=== PATIENT | male | born 1930 | race African-American/Black ===

== ENCOUNTER 2017-02-27 05:29 | Inpatient (IN) | payer MEDICARE, OTHER ==
[2017-02-27] MEDS: ALBUTEROL 0.083% (NEB) 2.5 MG/3 ML AMP HHN (07:10)
[2017-02-27 07:24] LABS: ADD MAN DIFF? NO
[2017-02-27 07:29] LABS: WHITE BLOOD COUNT 7.7 10^3/ul (4.8-10.8)
[2017-02-27 07:29] LABS: BASOPHIL # 0.1 10^3/ul (0.0-0.1); BASOPHILS % 1.2 % (0.0-2.0); EOSINOPHILS # 0.2 10^3/ul (0.0-0.5); EOSINOPHILS % 2.7 % (0.0-7.0); HEMATOCRIT 43.4 % (42.0-52.0); HEMOGLOBIN 14.7 g/dl (14.0-18.0); LYMPHOCYTES % 39.1 % (15.0-51.0); MEAN CORPUSCULAR HEMOGLOBIN 26.3 pg (29.0-33.0); MEAN CORPUSCULAR HGB CONC 33.9 g/dl (32.0-37.0); MEAN CORPUSCULAR VOLUME 77.8 fl (82.0-101.0); MEAN PLATELET VOLUME 8.7 fl (7.4-10.4); MONOCYTE # 0.6 10^3/ul (0.3-0.9); MONOCYTES % 8.4 % (0.0-11.0); NEUTROPHIL # 3.7 10^3/ul (1.6-7.5); NEUTROPHILS % 48.1 % (39.0-77.0); PLATELET COUNT 162 10^3/UL (140-415); RED BLOOD COUNT 5.58 10^6/ul (4.70-6.10); RED CELL DISTRIBUTION WIDTH 15.5 % (11.5-14.5)
[2017-02-27 07:54] LABS: ALANINE AMINOTRANSFERASE 52 IU/L (13-69); ALBUMIN 3.2 g/dl (3.3-4.9); ALBUMIN/GLOBULIN RATIO 0.91; ALKALINE PHOSPHATASE 76 IU/L (42-121); ANION GAP 11 (8-16); ASPARTATE AMINO TRANSFERASE 57 IU/L (15-46); BILIRUBIN,INDIRECT 0.1 mg/dl (0-1.1); BILIRUBIN,TOTAL 0.1 mg/dl (0.2-1.3); BLOOD UREA NITROGEN 17 mg/dl (7-20); CALCIUM 8.3 mg/dl (8.4-10.2); CARBON DIOXIDE 28 mmol/L (21-31); CHLORIDE 98 mmol/L (97-110); CREATININE 1.18 mg/dl (0.61-1.24); GLUCOSE 72 mg/dl (70-220); LIPASE 105 U/L (23-300); SODIUM 133 mmol/L (135-144); TOTAL PROTEIN 6.7 g/dl (6.1-8.1)
[2017-02-27 08:05] LABS: B-TYPE NATRIURETIC PEPTIDE 539 PG/ML (0-450); TROPONIN-I 0.016 ng/ml (0.00-0.12)
[2017-02-27] MEDS: FUROSEMIDE 40 MG INJ IV (09:21)
[2017-02-27] MEDS ORDERED: ALBUTEROL 0.083% (NEB) 2.5 MG/3 ML AMP HHN (12:30)
[2017-02-27 14:33] LABS: CREATINE KINASE 138 IU/L (23-200)
[2017-02-27 14:47] LABS: CK INDEX 0.7
[2017-02-27 14:56] LABS: CK-MB 0.98 ng/ml (0.0-2.4); TROPONIN-I < 0.012 ng/ml (0.00-0.12)
[2017-02-27] MEDS: HYDROCORTISONE 5 MG TAB PO ×2 (16:12→21:28)
[2017-02-27 19:38] LABS: CREATINE KINASE 125 IU/L (23-200)
[2017-02-27 19:51] LABS: CK INDEX 0.7; TROPONIN-I 0.012 ng/ml (0.00-0.12)
[2017-02-27 20:01] LABS: CK-MB 0.85 ng/ml (0.0-2.4)
[2017-02-27] MEDS: FUROSEMIDE 20 MG INJ IV (20:09)
[2017-02-27] MEDS: PHENYTOIN 100 MG CAP PO (21:28)
[2017-02-27] MEDS: FAMOTIDINE 20 MG TAB PO (21:28)
[2017-02-27] MEDS: CALCIUM CARBONATE 1.25 GM TAB PO (21:28)
[2017-02-27 22:44] LABS: ADD UMIC YES; UR ASCORBIC ACID NEGATIVE (NEGATIVE); UR BACTERIA FEW /HPF (NONE SEEN); UR BILIRUBIN (Dip) NEGATIVE (NEGATIVE); UR BLOOD (Dip) NEGATIVE (NEGATIVE); UR CLARITY SLIGHTLY CLOUDY (CLEAR); UR COLOR YELLOW (YELLOW); UR GLUCOSE (Dip) NEGATIVE (NEGATIVE); UR KETONES (Dip) NEGATIVE (NEGATIVE); UR LEUKOCYTE ESTERASE (Dip) 1+ Leu/ul (NEGATIVE); UR MUCUS FEW /HPF (NONE SEEN); UR NITRITE (Dip) POSITIVE (NEGATIVE); UR RBC 1 /HPF (0-5); UR SPECIFIC GRAVITY (Dip) 1.016 (1.003-1.030); UR SQUAMOUS EPITHELIAL CELL FEW /HPF (FEW); UR TOTAL PROTEIN (Dip) NEGATIVE (NEGATIVE); UR UROBILINOGEN (Dip) NEGATIVE (NEGATIVE); UR WBC 17 /HPF (0-5)
[2017-02-28] MEDS: CIPROFLOXACIN 400MG/D5W 200 ML IVPB (06:30)
[2017-02-28] MEDS: FUROSEMIDE 20 MG INJ IV (06:31)
[2017-02-28] MEDS: ENOXAPARIN 40 MG/0.4 ML SYG SC (09:00)
[2017-02-28 09:05] LABS: ADD MAN DIFF? NO
[2017-02-28 09:12] LABS: WHITE BLOOD COUNT 6.3 10^3/ul (4.8-10.8)
[2017-02-28 09:12] LABS: BASOPHIL # 0.1 10^3/ul (0.0-0.1); BASOPHILS % 1.1 % (0.0-2.0); EOSINOPHILS # 0.2 10^3/ul (0.0-0.5); EOSINOPHILS % 2.8 % (0.0-7.0); HEMATOCRIT 49.3 % (42.0-52.0); HEMOGLOBIN 16.5 g/dl (14.0-18.0); LYMPHOCYTES # 2.2 10^3/ul (0.8-2.9); LYMPHOCYTES % 34.3 % (15.0-51.0); MEAN CORPUSCULAR HEMOGLOBIN 26.6 pg (29.0-33.0); MEAN CORPUSCULAR HGB CONC 33.5 g/dl (32.0-37.0); MEAN CORPUSCULAR VOLUME 79.5 fl (82.0-101.0); MEAN PLATELET VOLUME 9.9 fl (7.4-10.4); MONOCYTE # 0.5 10^3/ul (0.3-0.9); MONOCYTES % 8.4 % (0.0-11.0); NEUTROPHIL # 3.3 10^3/ul (1.6-7.5); NEUTROPHILS % 52.8 % (39.0-77.0); PLATELET COUNT 154 10^3/UL (140-415); RED CELL DISTRIBUTION WIDTH 16.5 % (11.5-14.5)
[2017-02-28 09:35] LABS: ANION GAP 15 (8-16); BLOOD UREA NITROGEN 23 mg/dl (7-20); CALCIUM 8.6 mg/dl (8.4-10.2); CARBON DIOXIDE 29 mmol/L (21-31); CHLORIDE 97 mmol/L (97-110); CHOL/HDL RATIO 3.9 RATIO; CHOLESTEROL 226 mg/dl (100-200); CREATININE 1.49 mg/dl (0.61-1.24); GLUCOSE 82 mg/dl (70-220); HDL CHOLESTEROL 57 mg/dl (31-75); LDL CHOLESTEROL,CALCULATED 152 mg/dl; MAGNESIUM 2.1 mg/dl (1.7-2.5); POTASSIUM 4.1 mmol/L (3.5-5.1); SODIUM 137 mmol/L (135-144); TRIGLYCERIDES 87 mg/dl (0-149)
[2017-02-28 09:40] LABS: HEMOGLOBIN A1C 5.8 % (0-5.9)
[2017-02-28 10:08] LABS: FREE THYROXINE INDEX (Calc) 1.84 ug/ml (0.65-3.89); T3 UPTAKE 38.4 % (23.5-40.5); T4 (THYROXINE) 4.8 ug/dl (5.5-11.0)
[2017-02-28 10:22] LABS: THYROID STIMULATING HORMONE 0.066 MIU/L (0.465-4.680)
[2017-02-28] MEDS: LEVOTHYROXINE 150 MCG TAB PO (10:27)
[2017-02-28] MEDS: PHENYTOIN 100 MG CAP PO ×2 (10:28→20:50)
[2017-02-28] MEDS: CALCIUM CARBONATE 1.25 GM TAB PO ×2 (10:28→20:50)
[2017-02-28] MEDS: FAMOTIDINE 20 MG TAB PO ×2 (10:28→20:50)
[2017-02-28] MEDS: HYDROCORTISONE 5 MG TAB PO ×4 (11:18→20:50)
[2017-03-01] MEDS: HALOPERIDOL 5 MG INJ IM (06:01)
[2017-03-01] MEDS: LEVOTHYROXINE 125 MCG TAB PO (06:03)
[2017-03-01] MEDS ORDERED: LEVOTHYROXINE 150 MCG TAB PO (07:00)
[2017-03-01 08:15] LABS: ADD MAN DIFF? NO
[2017-03-01 08:18] LABS: BASOPHIL # 0.1 10^3/ul (0.0-0.1); BASOPHILS % 1.1 % (0.0-2.0); EOSINOPHILS # 0.2 10^3/ul (0.0-0.5); EOSINOPHILS % 3.3 % (0.0-7.0); HEMATOCRIT 46.2 % (42.0-52.0); HEMOGLOBIN 15.3 g/dl (14.0-18.0); LYMPHOCYTES # 1.9 10^3/ul (0.8-2.9); LYMPHOCYTES % 30.4 % (15.0-51.0); MEAN CORPUSCULAR HEMOGLOBIN 26.2 pg (29.0-33.0); MEAN CORPUSCULAR HGB CONC 33.1 g/dl (32.0-37.0); MEAN CORPUSCULAR VOLUME 79.2 fl (82.0-101.0); MEAN PLATELET VOLUME 8.9 fl (7.4-10.4); MONOCYTE # 0.6 10^3/ul (0.3-0.9); MONOCYTES % 9.3 % (0.0-11.0); NEUTROPHIL # 3.5 10^3/ul (1.6-7.5); NEUTROPHILS % 55.6 % (39.0-77.0); PLATELET COUNT 152 10^3/UL (140-415); RED BLOOD COUNT 5.83 10^6/ul (4.70-6.10); RED CELL DISTRIBUTION WIDTH 14.6 % (11.5-14.5)
[2017-03-01 08:18] LABS: WHITE BLOOD COUNT 6.3 10^3/ul (4.8-10.8)
[2017-03-01 08:45] LABS: ANION GAP 12 (8-16); BLOOD UREA NITROGEN 18 mg/dl (7-20); CARBON DIOXIDE 30 mmol/L (21-31); CHLORIDE 95 mmol/L (97-110); CREATININE 1.07 mg/dl (0.61-1.24); GLUCOSE 84 mg/dl (70-220); POTASSIUM 3.5 mmol/L (3.5-5.1); SODIUM 133 mmol/L (135-144)
[2017-03-01 08:46] LABS: PHENYTOIN (DILANTIN) 34.3 ug/ml (10.0-20.0)
[2017-03-01] MEDS: CALCIUM CARBONATE 1.25 GM TAB PO ×2 (09:00→21:10)
[2017-03-01] MEDS: HYDROCORTISONE 5 MG TAB PO ×3 (09:00→21:09)
[2017-03-01] MEDS: PHENYTOIN 100 MG CAP PO (09:00)
[2017-03-01] MEDS: FAMOTIDINE 20 MG TAB PO ×2 (09:00→21:10)
[2017-03-01] MEDS: CEFTRIAXONE 1 GM/50 ML (PMX) 50 ML IVPB ×2 (14:00→15:12)
[2017-03-01] MEDS: CALCITRIOL 0.25 MCG CAP PO ×2 (15:12→21:10)
[2017-03-01] MEDS: ASPIRIN (EC) 81 MG TAB PO (15:13)
[2017-03-01] MEDS: LIDOCAINE 1% (MPF) 5 ML VIAL SC (15:45)
[2017-03-01] MEDS: TAMSULOSIN (SR) 0.4 MG CAP PO (21:10)
[2017-03-02] MEDS: CIPROFLOXACIN 500 MG TAB PO ×3 (00:33→17:09)
[2017-03-02] MEDS: LEVOTHYROXINE 125 MCG TAB PO (05:44)
[2017-03-02 06:07] LABS: ADD MAN DIFF? NO
[2017-03-02 06:37] LABS: BASOPHIL # 0.1 10^3/ul (0.0-0.1); EOSINOPHILS # 0.2 10^3/ul (0.0-0.5); EOSINOPHILS % 3.3 % (0.0-7.0); HEMATOCRIT 48.2 % (42.0-52.0); HEMOGLOBIN 15.9 g/dl (14.0-18.0); LYMPHOCYTES # 2.3 10^3/ul (0.8-2.9); LYMPHOCYTES % 33.3 % (15.0-51.0); MEAN CORPUSCULAR HEMOGLOBIN 26.2 pg (29.0-33.0); MEAN CORPUSCULAR VOLUME 79.3 fl (82.0-101.0); MEAN PLATELET VOLUME 9.3 fl (7.4-10.4); MONOCYTE # 0.7 10^3/ul (0.3-0.9); MONOCYTES % 10.3 % (0.0-11.0); NEUTROPHIL # 3.6 10^3/ul (1.6-7.5); NEUTROPHILS % 51.7 % (39.0-77.0); PLATELET COUNT 151 10^3/UL (140-415); RED BLOOD COUNT 6.08 10^6/ul (4.70-6.10); RED CELL DISTRIBUTION WIDTH 14.7 % (11.5-14.5)
[2017-03-02 06:37] LABS: WHITE BLOOD COUNT 6.9 10^3/ul (4.8-10.8)
[2017-03-02 07:25] LABS: ANION GAP 11 (8-16); BLOOD UREA NITROGEN 16 mg/dl (7-20); CALCIUM 8.3 mg/dl (8.4-10.2); CARBON DIOXIDE 31 mmol/L (21-31); CHLORIDE 94 mmol/L (97-110); CREATININE 1.13 mg/dl (0.61-1.24); GLUCOSE 67 mg/dl (70-220); POTASSIUM 4.3 mmol/L (3.5-5.1); SODIUM 132 mmol/L (135-144)
[2017-03-02] MEDS ORDERED: ASPIRIN (EC) 81 MG TAB PO (09:00)
[2017-03-02] MEDS: HYDROCORTISONE 5 MG TAB PO (09:00)
[2017-03-02] MEDS: CALCITRIOL 0.25 MCG CAP PO ×3 (09:00→21:37)
[2017-03-02] MEDS: FAMOTIDINE 20 MG TAB PO ×2 (09:41→21:31)
[2017-03-02] MEDS: CALCIUM CARBONATE 1.25 GM TAB PO ×2 (09:41→21:31)
[2017-03-02] MEDS: ASPIRIN (EC) 81 MG TAB PO (09:41)
[2017-03-02] MEDS: COLLAGENASE 30 GM TUBE TOP (09:41)
[2017-03-02] MEDS: ENOXAPARIN 40 MG/0.4 ML SYG SC (09:55)
[2017-03-02] MEDS: HYDROCORTISONE 20 MG TAB PO ×3 (13:00→21:31)
[2017-03-02] MEDS: CEFTRIAXONE 1 GM/50 ML (PMX) 50 ML IVPB (13:38)
[2017-03-02 13:48] LABS: ADD UMIC YES; UR ASCORBIC ACID 20 mg/dL (NEGATIVE); UR BILIRUBIN (Dip) NEGATIVE (NEGATIVE); UR BLOOD (Dip) NEGATIVE (NEGATIVE); UR CLARITY CLEAR (CLEAR); UR COLOR YELLOW (YELLOW); UR GLUCOSE (Dip) NEGATIVE (NEGATIVE); UR KETONES (Dip) NEGATIVE (NEGATIVE); UR LEUKOCYTE ESTERASE (Dip) 1+ Leu/ul (NEGATIVE); UR NITRITE (Dip) NEGATIVE (NEGATIVE); UR RBC 2 /HPF (0-5); UR TOTAL PROTEIN (Dip) NEGATIVE (NEGATIVE); UR UROBILINOGEN (Dip) NEGATIVE (NEGATIVE); UR WBC 32 /HPF (0-5)
[2017-03-02] MEDS: HYDROCORTISONE 100 MG INJ IV ×2 (15:30→21:31)
[2017-03-02] MEDS: TESTOSTERONE CYPIONATE 200 MG/ML INJ IM (17:10)
[2017-03-02 19:16] LABS: PHENYTOIN (DILANTIN) 25.8 ug/ml (10.0-20.0)
[2017-03-02] MEDS: TAMSULOSIN (SR) 0.4 MG CAP PO (21:31)
[2017-03-03] MEDS: HYDROCORTISONE 100 MG INJ IV ×2 (06:19→13:12)
[2017-03-03] MEDS: LEVOTHYROXINE 125 MCG TAB PO (06:19)
[2017-03-03 07:05] LABS: FREE T3 2.55 pg/ml (2.77-5.27)
[2017-03-03 07:18] LABS: FREE T4 (FREE THYROXINE) 0.83 ng/dl (0.85-1.93)
[2017-03-03] MEDS: CALCIUM CARBONATE 1.25 GM TAB PO ×2 (09:23→21:11)
[2017-03-03] MEDS: HYDROCORTISONE 20 MG TAB PO ×3 (09:24→21:12)
[2017-03-03] MEDS: ASPIRIN (EC) 81 MG TAB PO (09:24)
[2017-03-03] MEDS: FAMOTIDINE 20 MG TAB PO ×2 (09:24→21:11)
[2017-03-03] MEDS: CALCITRIOL 0.25 MCG CAP PO ×2 (09:24→21:12)
[2017-03-03] MEDS: ENOXAPARIN 40 MG/0.4 ML SYG SC (09:28)
[2017-03-03] MEDS: COLLAGENASE 30 GM TUBE TOP (09:44)
[2017-03-03] MEDS: CEFTRIAXONE 1 GM/50 ML (PMX) 50 ML IVPB (13:13)
[2017-03-03] MEDS: LIOTHYRONINE 5 MCG TAB PO (14:10)
[2017-03-03 19:31] LABS: PHENYTOIN (DILANTIN) 15.5 ug/ml (10.0-20.0)
[2017-03-03] MEDS: TAMSULOSIN (SR) 0.4 MG CAP PO (21:12)
[2017-03-03] MEDS: LORAZEPAM 2 MG INJ IV (21:13)
[2017-03-04] MEDS: LEVOTHYROXINE 150 MCG TAB PO (06:14)
[2017-03-04] MEDS: CALCITRIOL 0.25 MCG CAP PO ×2 (08:26→10:33)
[2017-03-04] MEDS: CALCIUM CARBONATE 1.25 GM TAB PO ×4 (08:27→20:35)
[2017-03-04] MEDS: FAMOTIDINE 20 MG TAB PO ×2 (08:27→10:32)
[2017-03-04] MEDS: ASPIRIN (EC) 81 MG TAB PO ×3 (08:27→12:57)
[2017-03-04] MEDS: LIOTHYRONINE 5 MCG TAB PO ×3 (08:33→12:55)
[2017-03-04] MEDS: HYDROCORTISONE 20 MG TAB PO ×5 (08:33→20:35)
[2017-03-04] MEDS: ENOXAPARIN 40 MG/0.4 ML SYG SC (08:38)
[2017-03-04] MEDS: COLLAGENASE 30 GM TUBE TOP (08:47)
[2017-03-04] MEDS: CEFTRIAXONE 1 GM/50 ML (PMX) 50 ML IVPB (15:13)
[2017-03-04] MEDS: TAMSULOSIN (SR) 0.4 MG CAP PO (20:35)
[2017-03-04 21:48] LABS: PHENYTOIN (DILANTIN) 23.5 ug/ml (10.0-20.0)
[2017-03-05] MEDS: LEVOTHYROXINE 150 MCG TAB PO (06:56)
[2017-03-05 07:28] LABS: ADD MAN DIFF? NO
[2017-03-05 07:31] LABS: WHITE BLOOD COUNT 8.7 10^3/ul (4.8-10.8)
[2017-03-05 07:31] LABS: BASOPHIL # 0.1 10^3/ul (0.0-0.1); BASOPHILS % 1.1 % (0.0-2.0); EOSINOPHILS # 0.3 10^3/ul (0.0-0.5); EOSINOPHILS % 3.6 % (0.0-7.0); HEMOGLOBIN 15.1 g/dl (14.0-18.0); LYMPHOCYTES # 2.9 10^3/ul (0.8-2.9); LYMPHOCYTES % 32.8 % (15.0-51.0); MEAN CORPUSCULAR HEMOGLOBIN 26.9 pg (29.0-33.0); MEAN CORPUSCULAR HGB CONC 33.6 g/dl (32.0-37.0); MEAN CORPUSCULAR VOLUME 80.1 fl (82.0-101.0); MEAN PLATELET VOLUME 9.4 fl (7.4-10.4); MONOCYTE # 0.6 10^3/ul (0.3-0.9); MONOCYTES % 7.2 % (0.0-11.0); NEUTROPHIL # 4.8 10^3/ul (1.6-7.5); NEUTROPHILS % 54.8 % (39.0-77.0); PLATELET COUNT 184 10^3/UL (140-415); RED BLOOD COUNT 5.62 10^6/ul (4.70-6.10); RED CELL DISTRIBUTION WIDTH 15.9 % (11.5-14.5)
[2017-03-05 09:32] LABS: ALANINE AMINOTRANSFERASE 97 IU/L (13-69); ALBUMIN 3.5 g/dl (3.3-4.9); ALBUMIN/GLOBULIN RATIO 0.92; ALKALINE PHOSPHATASE 70 IU/L (42-121); ANION GAP 11 (8-16); ASPARTATE AMINO TRANSFERASE 75 IU/L (15-46); BILIRUBIN,INDIRECT 0.1 mg/dl (0-1.1); BILIRUBIN,TOTAL 0.1 mg/dl (0.2-1.3); BLOOD UREA NITROGEN 19 mg/dl (7-20); CALCIUM 8.7 mg/dl (8.4-10.2); CARBON DIOXIDE 33 mmol/L (21-31); CHLORIDE 99 mmol/L (97-110); CREATININE 1.22 mg/dl (0.61-1.24); GLUCOSE 105 mg/dl (70-220); POTASSIUM 4.1 mmol/L (3.5-5.1); SODIUM 139 mmol/L (135-144); TOTAL PROTEIN 7.3 g/dl (6.1-8.1)
[2017-03-05] MEDS: LIOTHYRONINE 5 MCG TAB PO (09:33)
[2017-03-05] MEDS: FAMOTIDINE 20 MG TAB PO ×2 (09:33→20:26)
[2017-03-05] MEDS: CALCITRIOL 0.25 MCG CAP PO ×2 (09:33→20:26)
[2017-03-05] MEDS: CALCIUM CARBONATE 1.25 GM TAB PO ×2 (09:33→20:26)
[2017-03-05] MEDS: ASPIRIN (EC) 81 MG TAB PO (09:33)
[2017-03-05] MEDS: HYDROCORTISONE 20 MG TAB PO ×2 (09:34→17:35)
[2017-03-05] MEDS: COLLAGENASE 30 GM TUBE TOP (09:34)
[2017-03-05] MEDS: ENOXAPARIN 40 MG/0.4 ML SYG SC (09:55)
[2017-03-05 11:43] LABS: MAGNESIUM 2.1 mg/dl (1.7-2.5)
[2017-03-05 11:43] LABS: PHOSPHORUS 3.5 mg/dl (2.5-4.9)
[2017-03-05 13:23] LABS: PHENYTOIN (DILANTIN) 34.3 ug/ml (10.0-20.0)
[2017-03-05] MEDS: CEFTRIAXONE 1 GM/50 ML (PMX) 50 ML IVPB (14:56)
[2017-03-05] MEDS: HYDROCORTISONE 5 MG TAB PO ×2 (18:00→20:26)
[2017-03-05] MEDS: TAMSULOSIN (SR) 0.4 MG CAP PO (20:26)
[2017-03-06] MEDS: ONDANSETRON 4 MG INJ IV (05:22)
[2017-03-06 06:53] LABS: ADD UMIC NO; UR ASCORBIC ACID NEGATIVE (NEGATIVE); UR BILIRUBIN (Dip) NEGATIVE (NEGATIVE); UR BLOOD (Dip) NEGATIVE (NEGATIVE); UR CLARITY SLIGHTLY CLOUDY (CLEAR); UR COLOR YELLOW (YELLOW); UR GLUCOSE (Dip) NEGATIVE (NEGATIVE); UR KETONES (Dip) NEGATIVE (NEGATIVE); UR LEUKOCYTE ESTERASE (Dip) NEGATIVE Leu/ul (NEGATIVE); UR NITRITE (Dip) NEGATIVE (NEGATIVE); UR RBC 1 /HPF (0-5); UR SPECIFIC GRAVITY (Dip) 1.021 (1.003-1.030); UR TOTAL PROTEIN (Dip) NEGATIVE (NEGATIVE); UR UROBILINOGEN (Dip) NEGATIVE (NEGATIVE); UR WBC 1 /HPF (0-5)
[2017-03-06] MEDS: LEVOTHYROXINE 150 MCG TAB PO (06:53)
[2017-03-06 08:19] LABS: CREATININE,URINE RANDOM 220.44 mg/dl (20-370)
[2017-03-06 08:19] LABS: SODIUM,URINE RANDOM 57 mmol/L (30-90)
[2017-03-06 08:39] LABS: OSMOLALITY,URINE 719 mOsm/kg (250-1200)
[2017-03-06 08:42] LABS: ADD MAN DIFF? NO
[2017-03-06 08:54] LABS: BASOPHILS % 0.3 % (0.0-2.0); EOSINOPHILS # 0.1 10^3/ul (0.0-0.5); EOSINOPHILS % 0.9 % (0.0-7.0); HEMATOCRIT 50.7 % (42.0-52.0); HEMOGLOBIN 16.6 g/dl (14.0-18.0); LYMPHOCYTES # 0.7 10^3/ul (0.8-2.9); LYMPHOCYTES % 10.9 % (15.0-51.0); MEAN CORPUSCULAR HEMOGLOBIN 26.4 pg (29.0-33.0); MEAN CORPUSCULAR HGB CONC 32.7 g/dl (32.0-37.0); MEAN CORPUSCULAR VOLUME 80.7 fl (82.0-101.0); MEAN PLATELET VOLUME 10.1 fl (7.4-10.4); MONOCYTE # 0.4 10^3/ul (0.3-0.9); MONOCYTES % 6.4 % (0.0-11.0); NEUTROPHIL # 5.3 10^3/ul (1.6-7.5); NEUTROPHILS % 80.6 % (39.0-77.0); RED BLOOD COUNT 6.28 10^6/ul (4.70-6.10); RED CELL DISTRIBUTION WIDTH 17.3 % (11.5-14.5)
[2017-03-06 08:54] LABS: WHITE BLOOD COUNT 6.6 10^3/ul (4.8-10.8)
[2017-03-06 09:05] LABS: PLATELET COUNT 134 10^3/UL (140-415)
[2017-03-06 09:12] LABS: ANION GAP 17 (8-16)
[2017-03-06 09:13] LABS: ALBUMIN 3.9 g/dl (3.3-4.9); BLOOD UREA NITROGEN 20 mg/dl (7-20); CALCIUM 8.2 mg/dl (8.4-10.2); CARBON DIOXIDE 24 mmol/L (21-31); CHLORIDE 100 mmol/L (97-110); CREATININE 1.24 mg/dl (0.61-1.24); GLUCOSE 88 mg/dl (70-220); MAGNESIUM 1.9 mg/dl (1.7-2.5); PHOSPHORUS 3.6 mg/dl (2.5-4.9); POTASSIUM 4.4 mmol/L (3.5-5.1); SODIUM 137 mmol/L (135-144)
[2017-03-06] MEDS: ACETAMINOPHEN 325 MG TAB PO ×2 (09:49→23:05)
[2017-03-06] MEDS: ASPIRIN (EC) 81 MG TAB PO (09:50)
[2017-03-06] MEDS: CALCIUM CARBONATE 1.25 GM TAB PO ×2 (09:50→21:35)
[2017-03-06] MEDS: FAMOTIDINE 20 MG TAB PO ×2 (09:50→21:35)
[2017-03-06] MEDS: CALCITRIOL 0.25 MCG CAP PO ×2 (09:50→21:35)
[2017-03-06] MEDS: COLLAGENASE 30 GM TUBE TOP (09:51)
[2017-03-06] MEDS: HYDROCORTISONE 5 MG TAB PO ×3 (09:51→21:35)
[2017-03-06] MEDS: LIOTHYRONINE 5 MCG TAB PO (09:51)
[2017-03-06] MEDS: ENOXAPARIN 40 MG/0.4 ML SYG SC (10:11)
[2017-03-06] MEDS ORDERED: PHENYTOIN 100 MG CAP PO (13:00)
[2017-03-06] MEDS: CEFTRIAXONE 1 GM/50 ML (PMX) 50 ML IVPB (13:25)
[2017-03-06] MEDS: PHENYTOIN 100 MG CAP PO ×2 (17:19→21:35)
[2017-03-06] MEDS: TAMSULOSIN (SR) 0.4 MG CAP PO (21:35)
[2017-03-07] MEDS ORDERED: VANCOMYCIN IV PER PHARMACY XX
[2017-03-07] MEDS: PIPER-TAZO 3.375 GM IV (PMX) 50 ML IVPB ×4 (00:25→21:47)
[2017-03-07] MEDS: SOD CHLORIDE 0.9% 500 ML IV (00:25)
[2017-03-07 01:21] LABS: ADD MAN DIFF? NO
[2017-03-07 01:31] LABS: BASOPHILS % 0.5 % (0.0-2.0); EOSINOPHILS # 0.1 10^3/ul (0.0-0.5); EOSINOPHILS % 1.2 % (0.0-7.0); HEMATOCRIT 48.9 % (42.0-52.0); HEMOGLOBIN 16.6 g/dl (14.0-18.0); LYMPHOCYTES # 1.5 10^3/ul (0.8-2.9); LYMPHOCYTES % 21.9 % (15.0-51.0); MEAN CORPUSCULAR HEMOGLOBIN 26.3 pg (29.0-33.0); MEAN CORPUSCULAR HGB CONC 33.9 g/dl (32.0-37.0); MEAN CORPUSCULAR VOLUME 77.6 fl (82.0-101.0); MEAN PLATELET VOLUME 9.5 fl (7.4-10.4); MONOCYTE # 0.5 10^3/ul (0.3-0.9); MONOCYTES % 6.9 % (0.0-11.0); NEUTROPHIL # 4.5 10^3/ul (1.6-7.5); NEUTROPHILS % 68.6 % (39.0-77.0); PLATELET COUNT 172 10^3/UL (140-415)
[2017-03-07 01:31] LABS: WHITE BLOOD COUNT 6.6 10^3/ul (4.8-10.8)
[2017-03-07 01:51] LABS: ALANINE AMINOTRANSFERASE 162 IU/L (13-69); ALBUMIN 3.5 g/dl (3.3-4.9); ALBUMIN/GLOBULIN RATIO 0.97; ALKALINE PHOSPHATASE 76 IU/L (42-121); ANION GAP 18 (8-16); ASPARTATE AMINO TRANSFERASE 157 IU/L (15-46); BILIRUBIN,INDIRECT 0.4 mg/dl (0-1.1); BILIRUBIN,TOTAL 0.4 mg/dl (0.2-1.3); BLOOD UREA NITROGEN 29 mg/dl (7-20); CALCIUM 8.2 mg/dl (8.4-10.2); CARBON DIOXIDE 21 mmol/L (21-31); CHLORIDE 94 mmol/L (97-110); CREATININE 3.07 mg/dl (0.61-1.24); GLUCOSE 121 mg/dl (70-220); POTASSIUM 4.8 mmol/L (3.5-5.1); SODIUM 128 mmol/L (135-144); TOTAL PROTEIN 7.1 g/dl (6.1-8.1)
[2017-03-07 01:57] LABS: LACTIC ACID 2.4 mmol/L (0.5-2.0)
[2017-03-07] MEDS: ACETAMINOPHEN 325 MG TAB PO (03:30)
[2017-03-07] MEDS: SOD CHLORIDE 0.9% 1,000 ML IV ×3 (03:37→21:55)
[2017-03-07 03:52] LABS: ADD UMIC YES; UR ASCORBIC ACID NEGATIVE (NEGATIVE); UR BACTERIA FEW /HPF (NONE SEEN); UR BILIRUBIN (Dip) NEGATIVE (NEGATIVE); UR BLOOD (Dip) NEGATIVE (NEGATIVE); UR CLARITY CLOUDY (CLEAR); UR COLOR AMBER (YELLOW); UR GLUCOSE (Dip) NEGATIVE (NEGATIVE); UR KETONES (Dip) TRACE mg/dL (NEGATIVE); UR LEUKOCYTE ESTERASE (Dip) NEGATIVE Leu/ul (NEGATIVE); UR MUCUS FEW /HPF (NONE SEEN); UR NITRITE (Dip) NEGATIVE (NEGATIVE); UR RBC 3 /HPF (0-5); UR TOTAL PROTEIN (Dip) NEGATIVE (NEGATIVE); UR UROBILINOGEN (Dip) 1+ mg/dL (NEGATIVE); UR WBC 5 /HPF (0-5)
[2017-03-07] MEDS: LEVOTHYROXINE 150 MCG TAB PO (06:00)
[2017-03-07] MEDS: LIDOCAINE 1% (MPF) 5 ML VIAL SC ×2 (06:30→08:00)
[2017-03-07] MEDS: ALBUMIN HUMAN 25% 100 ML IV ×3 (06:39→08:00)
[2017-03-07 07:51] LABS: ADD MAN DIFF? NO
[2017-03-07] MEDS ORDERED: ZOLPIDEM 5 MG TAB PO (08:00)
[2017-03-07 08:06] LABS: BASOPHILS % 0.6 % (0.0-2.0); EOSINOPHILS # 0.1 10^3/ul (0.0-0.5); EOSINOPHILS % 1.3 % (0.0-7.0); HEMATOCRIT 44.1 % (42.0-52.0); HEMOGLOBIN 15.1 g/dl (14.0-18.0); LYMPHOCYTES # 1.5 10^3/ul (0.8-2.9); LYMPHOCYTES % 23.4 % (15.0-51.0); MEAN CORPUSCULAR HEMOGLOBIN 26.6 pg (29.0-33.0); MEAN CORPUSCULAR HGB CONC 34.2 g/dl (32.0-37.0); MEAN CORPUSCULAR VOLUME 77.8 fl (82.0-101.0); MEAN PLATELET VOLUME 9.1 fl (7.4-10.4); MONOCYTE # 0.5 10^3/ul (0.3-0.9); MONOCYTES % 8.4 % (0.0-11.0); NEUTROPHIL # 4.1 10^3/ul (1.6-7.5); NEUTROPHILS % 65.8 % (39.0-77.0); PLATELET COUNT 151 10^3/UL (140-415); RED BLOOD COUNT 5.67 10^6/ul (4.70-6.10); RED CELL DISTRIBUTION WIDTH 15.7 % (11.5-14.5)
[2017-03-07 08:06] LABS: WHITE BLOOD COUNT 6.2 10^3/ul (4.8-10.8)
[2017-03-07 08:22] LABS: LACTIC ACID 1.8 mmol/L (0.5-2.0)
[2017-03-07] MEDS: HYDROCORTISONE 5 MG TAB PO ×3 (09:00→21:00)
[2017-03-07] MEDS: LIOTHYRONINE 5 MCG TAB PO (09:00)
[2017-03-07] MEDS: ENOXAPARIN 40 MG/0.4 ML SYG SC (09:34)
[2017-03-07 09:36] LABS: B-TYPE NATRIURETIC PEPTIDE 2110 PG/ML (0-450)
[2017-03-07] MEDS: ALBUTEROL 0.083% (NEB) 2.5 MG/3 ML AMP HHN ×4 (09:41→20:31)
[2017-03-07 09:54] LABS: ALBUMIN 3.5 g/dl (3.3-4.9); ANION GAP 17 (8-16); BLOOD UREA NITROGEN 32 mg/dl (7-20); CALCIUM 7.5 mg/dl (8.4-10.2); CARBON DIOXIDE 19 mmol/L (21-31); CHLORIDE 99 mmol/L (97-110); CREATININE 3.22 mg/dl (0.61-1.24); GLUCOSE 81 mg/dl (70-220); MAGNESIUM 1.7 mg/dl (1.7-2.5); PHOSPHORUS 3.7 mg/dl (2.5-4.9); POTASSIUM 3.6 mmol/L (3.5-5.1); SODIUM 131 mmol/L (135-144)
[2017-03-07] MEDS: VANCOMYCIN 2 GM in SOD CHLORIDE 0.9% 500 ML IVPB (10:33)
[2017-03-07 10:46] LABS: AADO2 Arterial 78.1 mmHg (7.0-24.0); Allen Test ACCEPTAB; Arterial Blood Gas Oxygen Sat 97.4 mmHG (95.0-100.0); Arterial COHb 0.1 % (0.0-3.0); Arterial Fraction of Oxyhgb 96.8 % (93.0-99.0); Arterial HCO3 21.9 mmol/L (22.0-26.0); Arterial MetHb 0.5 % (0.0-1.5); Arterial Total Hemglobin 14.7 g/dl (12.0-18.0); Arterial pCO2 35.2 mmhg (35-45); MODE NASAL CANNULA; Site Right Radial
[2017-03-07 14:07] LABS: CREATININE, RANDOM URINE 236 mg/dL (20-370); MICROALBUMIN 0.6 mg/dL; MICROALBUMIN/CREATININE RATIO 3 (<30)
[2017-03-07 15:01] LABS: ANION GAP 9 (8-16); BLOOD UREA NITROGEN 21 mg/dl (7-20); CARBON DIOXIDE 16 mmol/L (21-31); CHLORIDE 115 mmol/L (97-110); CREATININE 1.69 mg/dl (0.61-1.24); SODIUM 137 mmol/L (135-144)
[2017-03-07 15:17] LABS: POTASSIUM 2.6 mmol/L (3.5-5.1)
[2017-03-07 15:18] LABS: GLUCOSE 36 mg/dl (70-220)
[2017-03-07 15:20] LABS: CALCIUM 4.2 mg/dl (8.4-10.2)
[2017-03-07] MEDS: COLLAGENASE 30 GM TUBE TOP (16:00)
[2017-03-07] MEDS: CALCITRIOL 0.25 MCG CAP PO ×2 (16:13→21:54)
[2017-03-07] MEDS: PHENYTOIN 100 MG CAP PO ×2 (16:13→21:48)
[2017-03-07] MEDS: ASPIRIN (EC) 81 MG TAB PO (16:13)
[2017-03-07] MEDS: FAMOTIDINE 20 MG TAB PO ×2 (16:14→21:48)
[2017-03-07] MEDS: CALCIUM CARBONATE 1.25 GM TAB PO ×2 (16:14→21:48)
[2017-03-07 16:21] LABS: ADD UMIC YES; UR ASCORBIC ACID NEGATIVE (NEGATIVE); UR BACTERIA FEW /HPF (NONE SEEN); UR BILIRUBIN (Dip) NEGATIVE (NEGATIVE); UR BLOOD (Dip) 2+ mg/dL (NEGATIVE); UR CLARITY CLOUDY (CLEAR); UR COLOR YELLOW (YELLOW); UR GLUCOSE (Dip) NEGATIVE (NEGATIVE); UR KETONES (Dip) NEGATIVE (NEGATIVE); UR LEUKOCYTE ESTERASE (Dip) NEGATIVE Leu/ul (NEGATIVE); UR NITRITE (Dip) NEGATIVE (NEGATIVE); UR RBC 3 /HPF (0-5); UR SPECIFIC GRAVITY (Dip) 1.018 (1.003-1.030); UR TOTAL PROTEIN (Dip) 1+ mg/dl (NEGATIVE); UR UROBILINOGEN (Dip) NEGATIVE (NEGATIVE); UR WBC 6 /HPF (0-5)
[2017-03-07 17:03] LABS: CREATININE,URINE RANDOM 155.74 mg/dl (20-370)
[2017-03-07 17:21] LABS: SODIUM,URINE RANDOM 42 mmol/L (30-90)
[2017-03-07 17:33] LABS: ALANINE AMINOTRANSFERASE 121 IU/L (13-69); ALBUMIN 3.6 g/dl (3.3-4.9); ALBUMIN/GLOBULIN RATIO 1.28; ALKALINE PHOSPHATASE 59 IU/L (42-121); ANION GAP 13 (8-16); ASPARTATE AMINO TRANSFERASE 102 IU/L (15-46); BILIRUBIN,INDIRECT 0.3 mg/dl (0-1.1); BILIRUBIN,TOTAL 0.3 mg/dl (0.2-1.3); BLOOD UREA NITROGEN 27 mg/dl (7-20); CALCIUM 7.3 mg/dl (8.4-10.2); CARBON DIOXIDE 21 mmol/L (21-31); CHLORIDE 101 mmol/L (97-110); CREATININE 2.43 mg/dl (0.61-1.24); GLUCOSE 86 mg/dl (70-220); MAGNESIUM 1.7 mg/dl (1.7-2.5); PHOSPHORUS 3.5 mg/dl (2.5-4.9); POTASSIUM 3.1 mmol/L (3.5-5.1); SODIUM 132 mmol/L (135-144); TOTAL PROTEIN 6.4 g/dl (6.1-8.1)
[2017-03-07] MEDS: POTASSIUM CHLORIDE 50 ML IVPB (19:44)
[2017-03-07] MEDS: TAMSULOSIN (SR) 0.4 MG CAP PO (21:48)
[2017-03-08] MEDS ORDERED: VANCOMYCIN 1.5 GM in DEXTROSE 5% 500 ML IVPB (01:00)
[2017-03-08] MEDS: PIPER-TAZO 3.375 GM IV (PMX) 50 ML IVPB ×3 (05:18→20:51)
[2017-03-08] MEDS: LEVOTHYROXINE 150 MCG TAB PO (06:00)
[2017-03-08] MEDS: CALCITRIOL 0.25 MCG CAP PO ×2 (08:38→20:49)
[2017-03-08] MEDS: PHENYTOIN 100 MG CAP PO ×2 (08:38→20:49)
[2017-03-08] MEDS: LIOTHYRONINE 5 MCG TAB PO (08:38)
[2017-03-08] MEDS: FAMOTIDINE 20 MG TAB PO ×2 (08:38→20:50)
[2017-03-08] MEDS: HYDROCORTISONE 5 MG TAB PO ×3 (08:39→21:00)
[2017-03-08] MEDS: ASPIRIN (EC) 81 MG TAB PO (08:39)
[2017-03-08] MEDS: CALCIUM CARBONATE 1.25 GM TAB PO ×2 (08:39→20:49)
[2017-03-08] MEDS: ALBUTEROL 0.083% (NEB) 2.5 MG/3 ML AMP HHN ×4 (08:48→20:19)
[2017-03-08] MEDS: ENOXAPARIN 30 MG/0.3 ML SYG SC (08:49)
[2017-03-08] MEDS: COLLAGENASE 30 GM TUBE TOP (09:00)
[2017-03-08 11:13] LABS: ADD MAN DIFF? NO
[2017-03-08 11:18] LABS: WHITE BLOOD COUNT 7.1 10^3/ul (4.8-10.8)
[2017-03-08 11:18] LABS: BASOPHILS % 0.3 % (0.0-2.0); EOSINOPHILS # 0.4 10^3/ul (0.0-0.5); EOSINOPHILS % 5.2 % (0.0-7.0); LYMPHOCYTES # 1.8 10^3/ul (0.8-2.9); LYMPHOCYTES % 24.9 % (15.0-51.0); MEAN CORPUSCULAR HEMOGLOBIN 26.4 pg (29.0-33.0); MEAN CORPUSCULAR HGB CONC 33.3 g/dl (32.0-37.0); MEAN CORPUSCULAR VOLUME 79.3 fl (82.0-101.0); MEAN PLATELET VOLUME 9.1 fl (7.4-10.4); MONOCYTE # 0.7 10^3/ul (0.3-0.9); MONOCYTES % 10.3 % (0.0-11.0); NEUTROPHIL # 4.2 10^3/ul (1.6-7.5); NEUTROPHILS % 58.9 % (39.0-77.0); PLATELET COUNT 128 10^3/UL (140-415); POSITIVE DIFF @See below; RED BLOOD COUNT 4.92 10^6/ul (4.70-6.10); RED CELL DISTRIBUTION WIDTH 15.6 % (11.5-14.5)
[2017-03-08 11:37] LABS: ALANINE AMINOTRANSFERASE 96 IU/L (13-69); ALBUMIN 3.2 g/dl (3.3-4.9); ALBUMIN/GLOBULIN RATIO 1.14; ALKALINE PHOSPHATASE 56 IU/L (42-121); ANION GAP 12 (8-16); ASPARTATE AMINO TRANSFERASE 74 IU/L (15-46); BILIRUBIN,INDIRECT 0.2 mg/dl (0-1.1); BILIRUBIN,TOTAL 0.2 mg/dl (0.2-1.3); BLOOD UREA NITROGEN 19 mg/dl (7-20); CALCIUM 7.3 mg/dl (8.4-10.2); CARBON DIOXIDE 23 mmol/L (21-31); CHLORIDE 104 mmol/L (97-110); CREATININE 1.61 mg/dl (0.61-1.24); GLUCOSE 93 mg/dl (70-220); POTASSIUM 3.3 mmol/L (3.5-5.1); SODIUM 136 mmol/L (135-144)
[2017-03-08 11:39] LABS: PHOSPHORUS 2.2 mg/dl (2.5-4.9)
[2017-03-08 11:39] LABS: ANION GAP 14 (8-16); BLOOD UREA NITROGEN 19 mg/dl (7-20); CALCIUM 7.4 mg/dl (8.4-10.2); CARBON DIOXIDE 25 mmol/L (21-31); CHLORIDE 104 mmol/L (97-110); CREATININE 1.63 mg/dl (0.61-1.24); GLUCOSE 92 mg/dl (70-220); MAGNESIUM 1.8 mg/dl (1.7-2.5); PHOSPHORUS 2.2 mg/dl (2.5-4.9); POTASSIUM 3.3 mmol/L (3.5-5.1); SODIUM 140 mmol/L (135-144)
[2017-03-08] MEDS: SOD CHLORIDE 0.9% 1,000 ML IV (13:36)
[2017-03-08] MEDS: ALBUMIN HUMAN 25% 100 ML IV (16:39)
[2017-03-08] MEDS: TAMSULOSIN (SR) 0.4 MG CAP PO (20:49)
[2017-03-09] MEDS: SOD CHLORIDE 0.9% 1,000 ML IV ×2 (03:25→22:15)
[2017-03-09] MEDS: PIPER-TAZO 3.375 GM IV (PMX) 50 ML IVPB ×3 (05:17→21:37)
[2017-03-09] MEDS: LEVOTHYROXINE 150 MCG TAB PO (05:17)
[2017-03-09] MEDS: ALBUTEROL 0.083% (NEB) 2.5 MG/3 ML AMP HHN ×4 (08:18→21:00)
[2017-03-09 08:38] LABS: ALANINE AMINOTRANSFERASE 73 IU/L (13-69); ALBUMIN 3.1 g/dl (3.3-4.9); ALBUMIN/GLOBULIN RATIO 1.06; ALKALINE PHOSPHATASE 48 IU/L (42-121); ANION GAP 15 (8-16); ASPARTATE AMINO TRANSFERASE 54 IU/L (15-46); BILIRUBIN,INDIRECT 0.2 mg/dl (0-1.1); BILIRUBIN,TOTAL 0.2 mg/dl (0.2-1.3); BLOOD UREA NITROGEN 11 mg/dl (7-20); CALCIUM 7.6 mg/dl (8.4-10.2); CARBON DIOXIDE 25 mmol/L (21-31); CHLORIDE 106 mmol/L (97-110); CREATININE 1.26 mg/dl (0.61-1.24); GLUCOSE 99 mg/dl (70-220); POTASSIUM 3.6 mmol/L (3.5-5.1); SODIUM 142 mmol/L (135-144)
[2017-03-09 08:49] LABS: VANCOMYCIN,TROUGH < 5.0 ug/ml (10.0-20.0)
[2017-03-09] MEDS: ASPIRIN (EC) 81 MG TAB PO (08:55)
[2017-03-09] MEDS: CALCIUM CARBONATE 1.25 GM TAB PO ×3 (08:55→18:11)
[2017-03-09] MEDS: PHENYTOIN 100 MG CAP PO ×2 (08:55→21:36)
[2017-03-09] MEDS: CALCITRIOL 0.25 MCG CAP PO ×2 (08:55→21:36)
[2017-03-09] MEDS: HYDROCORTISONE 5 MG TAB PO ×3 (08:55→21:36)
[2017-03-09] MEDS: FAMOTIDINE 20 MG TAB PO ×2 (08:55→21:36)
[2017-03-09] MEDS: LIOTHYRONINE 5 MCG TAB PO (08:55)
[2017-03-09] MEDS: ENOXAPARIN 30 MG/0.3 ML SYG SC (09:06)
[2017-03-09] MEDS: VANCOMYCIN 1.5 GM in DEXTROSE 5% 500 ML IVPB (09:16)
[2017-03-09 12:48] LABS: HEPATITIS B SURFACE ANTIGEN NEGATIVE (NEGATIVE)
[2017-03-09] MEDS: ERGOCALCIFEROL 50,000 UNIT CAP PO (12:52)
[2017-03-09] MEDS: COLLAGENASE 30 GM TUBE TOP (12:52)
[2017-03-09 13:06] LABS: HEPATITIS C VIRAL ANTIBODY NEGATIVE (NEGATIVE)
[2017-03-09 14:05] LABS: IONIZED CALCIUM 1.1 mmol/L (1.1-1.4)
[2017-03-09] MEDS: TAMSULOSIN (SR) 0.4 MG CAP PO (21:36)
[2017-03-10] MEDS: PIPER-TAZO 3.375 GM IV (PMX) 50 ML IVPB ×3 (05:35→21:06)
[2017-03-10] MEDS: ALBUTEROL 0.083% (NEB) 2.5 MG/3 ML AMP HHN ×4 (08:13→21:13)
[2017-03-10 08:48] LABS: ALANINE AMINOTRANSFERASE 75 IU/L (13-69); ALBUMIN 2.9 g/dl (3.3-4.9); ALBUMIN/GLOBULIN RATIO 1.07; ALKALINE PHOSPHATASE 45 IU/L (42-121); ANION GAP 13 (8-16); ASPARTATE AMINO TRANSFERASE 69 IU/L (15-46); BILIRUBIN,INDIRECT 0.1 mg/dl (0-1.1); BILIRUBIN,TOTAL 0.1 mg/dl (0.2-1.3); BLOOD UREA NITROGEN 6 mg/dl (7-20); CALCIUM 7.3 mg/dl (8.4-10.2); CARBON DIOXIDE 24 mmol/L (21-31); CHLORIDE 108 mmol/L (97-110); GLUCOSE 68 mg/dl (70-220); POTASSIUM 3.5 mmol/L (3.5-5.1); SODIUM 141 mmol/L (135-144); TOTAL PROTEIN 5.6 g/dl (6.1-8.1)
[2017-03-10 08:56] LABS: FREE T3 1.84 pg/ml (2.77-5.27)
[2017-03-10] MEDS: LIOTHYRONINE 5 MCG TAB PO ×2 (10:18→21:03)
[2017-03-10] MEDS: CALCIUM CARBONATE 1.25 GM TAB PO ×3 (10:18→18:28)
[2017-03-10] MEDS: HYDROCORTISONE 5 MG TAB PO ×3 (10:18→21:04)
[2017-03-10] MEDS: LEVOTHYROXINE 150 MCG TAB PO (10:18)
[2017-03-10] MEDS: CALCITRIOL 0.25 MCG CAP PO ×2 (10:18→21:04)
[2017-03-10] MEDS: FAMOTIDINE 20 MG TAB PO ×2 (10:19→21:04)
[2017-03-10] MEDS: ASPIRIN (EC) 81 MG TAB PO (10:19)
[2017-03-10] MEDS: COLLAGENASE 30 GM TUBE TOP (10:19)
[2017-03-10] MEDS: PHENYTOIN 100 MG CAP PO ×2 (10:19→15:33)
[2017-03-10] MEDS: ENOXAPARIN 30 MG/0.3 ML SYG SC (10:21)
[2017-03-10] MEDS: LEVOTHYROXINE 25 MCG TAB PO (13:03)
[2017-03-10] MEDS: ERGOCALCIFEROL 50,000 UNIT CAP PO (13:03)
[2017-03-10] MEDS: VANCOMYCIN 1.5 GM in DEXTROSE 5% 500 ML IVPB (13:03)
[2017-03-10] MEDS: FINASTERIDE 5 MG TAB PO (15:33)
[2017-03-10] MEDS: TAMSULOSIN (SR) 0.4 MG CAP PO (21:04)
[2017-03-10] MEDS ORDERED: PHENYTOIN 50 MG CHEW PO (22:00)
[2017-03-11] MEDS: PIPER-TAZO 3.375 GM IV (PMX) 50 ML IVPB ×3 (05:42→21:49)
[2017-03-11] MEDS: CALCIUM CARBONATE 1.25 GM TAB PO ×3 (05:46→17:43)
[2017-03-11] MEDS: LEVOTHYROXINE 175 MCG TAB PO (05:46)
[2017-03-11 06:51] LABS: ADD MAN DIFF? NO
[2017-03-11 06:57] LABS: WHITE BLOOD COUNT 7.6 10^3/ul (4.8-10.8)
[2017-03-11 06:57] LABS: BASOPHIL # 0.1 10^3/ul (0.0-0.1); BASOPHILS % 1.1 % (0.0-2.0); EOSINOPHILS # 0.3 10^3/ul (0.0-0.5); EOSINOPHILS % 3.9 % (0.0-7.0); HEMATOCRIT 41.8 % (42.0-52.0); HEMOGLOBIN 13.9 g/dl (14.0-18.0); LYMPHOCYTES # 2.8 10^3/ul (0.8-2.9); LYMPHOCYTES % 36.8 % (15.0-51.0); MEAN CORPUSCULAR HEMOGLOBIN 26.2 pg (29.0-33.0); MEAN CORPUSCULAR HGB CONC 33.3 g/dl (32.0-37.0); MEAN CORPUSCULAR VOLUME 78.9 fl (82.0-101.0); MEAN PLATELET VOLUME 9.3 fl (7.4-10.4); MONOCYTE # 0.8 10^3/ul (0.3-0.9); MONOCYTES % 9.9 % (0.0-11.0); NEUTROPHIL # 3.5 10^3/ul (1.6-7.5); NEUTROPHILS % 46.3 % (39.0-77.0); PLATELET COUNT 182 10^3/UL (140-415)
[2017-03-11 07:47] LABS: ALANINE AMINOTRANSFERASE 142 IU/L (13-69); ALBUMIN 3.3 g/dl (3.3-4.9); ALBUMIN/GLOBULIN RATIO 1.06; ALKALINE PHOSPHATASE 53 IU/L (42-121); ANION GAP 15 (8-16); ASPARTATE AMINO TRANSFERASE 157 IU/L (15-46); BILIRUBIN,INDIRECT 0.1 mg/dl (0-1.1); BILIRUBIN,TOTAL 0.1 mg/dl (0.2-1.3); BLOOD UREA NITROGEN 5 mg/dl (7-20); CALCIUM 7.9 mg/dl (8.4-10.2); CARBON DIOXIDE 24 mmol/L (21-31); CHLORIDE 106 mmol/L (97-110); CREATININE 1.11 mg/dl (0.61-1.24); GLUCOSE 73 mg/dl (70-220); POTASSIUM 3.4 mmol/L (3.5-5.1); SODIUM 142 mmol/L (135-144); TOTAL PROTEIN 6.4 g/dl (6.1-8.1)
[2017-03-11 08:16] LABS: PHENYTOIN (DILANTIN) 20.1 ug/ml (10.0-20.0)
[2017-03-11 09:19] LABS: MAGNESIUM 1.9 mg/dl (1.7-2.5)
[2017-03-11 09:19] LABS: PHOSPHORUS 2.3 mg/dl (2.5-4.9)
[2017-03-11] MEDS: COLLAGENASE 30 GM TUBE TOP (09:27)
[2017-03-11] MEDS: CALCITRIOL 0.25 MCG CAP PO ×2 (09:35→21:45)
[2017-03-11] MEDS: LIOTHYRONINE 5 MCG TAB PO ×2 (09:35→21:44)
[2017-03-11] MEDS: HYDROCORTISONE 5 MG TAB PO ×3 (09:36→21:45)
[2017-03-11] MEDS: FINASTERIDE 5 MG TAB PO (09:36)
[2017-03-11] MEDS: POTASSIUM CHLORIDE (SR) 20 MEQ TAB PO (09:36)
[2017-03-11] MEDS: FAMOTIDINE 20 MG TAB PO ×2 (09:36→21:44)
[2017-03-11] MEDS: ASPIRIN (EC) 81 MG TAB PO (09:36)
[2017-03-11] MEDS: ENOXAPARIN 30 MG/0.3 ML SYG SC (09:47)
[2017-03-11] MEDS: ALBUTEROL 0.083% (NEB) 2.5 MG/3 ML AMP HHN ×4 (10:34→22:36)
[2017-03-11] MEDS ORDERED: POTASSIUM PHOSPHATE 20 MEQ in SOD CHLORIDE 0.9% 250 ML IVPB (11:30)
[2017-03-11] MEDS: VANCOMYCIN 1.5 GM in DEXTROSE 5% 500 ML IVPB (11:53)
[2017-03-11] MEDS: POTASSIUM CHLORIDE 50 ML IVPB ×2 (16:14→17:43)
[2017-03-11] MEDS: TAMSULOSIN (SR) 0.4 MG CAP PO (21:44)
[2017-03-12] MEDS: PIPER-TAZO 3.375 GM IV (PMX) 50 ML IVPB ×3 (05:57→22:32)
[2017-03-12] MEDS: LEVOTHYROXINE 175 MCG TAB PO (05:57)
[2017-03-12] MEDS: CALCIUM CARBONATE 1.25 GM TAB PO ×3 (05:58→17:49)
[2017-03-12 08:12] LABS: ADD MAN DIFF? NO
[2017-03-12 08:18] LABS: WHITE BLOOD COUNT 7.8 10^3/ul (4.8-10.8)
[2017-03-12 08:18] LABS: BASOPHIL # 0.1 10^3/ul (0.0-0.1); BASOPHILS % 1.2 % (0.0-2.0); EOSINOPHILS # 0.4 10^3/ul (0.0-0.5); HEMATOCRIT 43.1 % (42.0-52.0); HEMOGLOBIN 14.5 g/dl (14.0-18.0); LYMPHOCYTES # 2.3 10^3/ul (0.8-2.9); LYMPHOCYTES % 28.9 % (15.0-51.0); MEAN CORPUSCULAR HEMOGLOBIN 26.4 pg (29.0-33.0); MEAN CORPUSCULAR HGB CONC 33.6 g/dl (32.0-37.0); MEAN CORPUSCULAR VOLUME 78.5 fl (82.0-101.0); MEAN PLATELET VOLUME 9.5 fl (7.4-10.4); MONOCYTE # 0.7 10^3/ul (0.3-0.9); MONOCYTES % 8.5 % (0.0-11.0); NEUTROPHIL # 4.2 10^3/ul (1.6-7.5); NEUTROPHILS % 53.2 % (39.0-77.0); PLATELET COUNT 212 10^3/UL (140-415); RED BLOOD COUNT 5.49 10^6/ul (4.70-6.10)
[2017-03-12 08:48] LABS: PHENYTOIN (DILANTIN) 15.1 ug/ml (10.0-20.0)
[2017-03-12 08:54] LABS: ANION GAP 15 (8-16); BLOOD UREA NITROGEN 4 mg/dl (7-20); CALCIUM 8.5 mg/dl (8.4-10.2); CARBON DIOXIDE 27 mmol/L (21-31); CHLORIDE 106 mmol/L (97-110); CREATININE 1.27 mg/dl (0.61-1.24); GLUCOSE 77 mg/dl (70-220); PHOSPHORUS 1.8 mg/dl (2.5-4.9); POTASSIUM 3.6 mmol/L (3.5-5.1); SODIUM 144 mmol/L (135-144)
[2017-03-12] MEDS: ALBUTEROL 0.083% (NEB) 2.5 MG/3 ML AMP HHN ×4 (09:07→20:38)
[2017-03-12] MEDS: ASPIRIN (EC) 81 MG TAB PO (09:22)
[2017-03-12] MEDS: FINASTERIDE 5 MG TAB PO (09:23)
[2017-03-12] MEDS: FAMOTIDINE 20 MG TAB PO ×2 (09:23→20:31)
[2017-03-12] MEDS: CALCITRIOL 0.25 MCG CAP PO ×2 (09:27→20:31)
[2017-03-12] MEDS: COLLAGENASE 30 GM TUBE TOP (09:27)
[2017-03-12] MEDS: HYDROCORTISONE 5 MG TAB PO ×3 (09:33→20:30)
[2017-03-12] MEDS: LIOTHYRONINE 5 MCG TAB PO ×2 (09:33→20:31)
[2017-03-12] MEDS: ENOXAPARIN 30 MG/0.3 ML SYG SC (10:54)
[2017-03-12] MEDS ORDERED: POTASSIUM PHOSPHATE 60 MEQ in SOD CHLORIDE 0.9% 250 ML IVPB (11:00)
[2017-03-12] MEDS: NEUTRA-PHOS 250 MG PACKET PO (11:53)
[2017-03-12 12:39] LABS: VANCOMYCIN,TROUGH 11.3 ug/ml (10.0-20.0)
[2017-03-12] MEDS: VANCOMYCIN 1.5 GM in DEXTROSE 5% 500 ML IVPB (13:55)
[2017-03-12 14:26] LABS: CREATININE, RANDOM URINE 171 mg/dL (20-370); MICROALBUMIN 7.9 mg/dL; MICROALBUMIN/CREATININE RATIO 46 (<30)
[2017-03-12] MEDS: ACETAMINOPHEN 325 MG TAB PO (15:20)
[2017-03-12] MEDS: TAMSULOSIN (SR) 0.4 MG CAP PO (20:31)
[2017-03-13] MEDS: PIPER-TAZO 3.375 GM IV (PMX) 50 ML IVPB ×3 (06:16→21:30)
[2017-03-13] MEDS: LEVOTHYROXINE 175 MCG TAB PO (06:47)
[2017-03-13 08:16] LABS: ADD MAN DIFF? NO
[2017-03-13 08:18] LABS: BASOPHIL # 0.1 10^3/ul (0.0-0.1); EOSINOPHILS # 0.4 10^3/ul (0.0-0.5); HEMATOCRIT 40.3 % (42.0-52.0); HEMOGLOBIN 13.5 g/dl (14.0-18.0); LYMPHOCYTES # 2.4 10^3/ul (0.8-2.9); LYMPHOCYTES % 28.9 % (15.0-51.0); MEAN CORPUSCULAR HEMOGLOBIN 26.2 pg (29.0-33.0); MEAN CORPUSCULAR HGB CONC 33.5 g/dl (32.0-37.0); MEAN CORPUSCULAR VOLUME 78.3 fl (82.0-101.0); MEAN PLATELET VOLUME 9.5 fl (7.4-10.4); MONOCYTE # 0.7 10^3/ul (0.3-0.9); MONOCYTES % 8.5 % (0.0-11.0); NEUTROPHIL # 4.4 10^3/ul (1.6-7.5); NEUTROPHILS % 52.6 % (39.0-77.0); PLATELET COUNT 232 10^3/UL (140-415); RED BLOOD COUNT 5.15 10^6/ul (4.70-6.10); RED CELL DISTRIBUTION WIDTH 17.2 % (11.5-14.5)
[2017-03-13 08:18] LABS: WHITE BLOOD COUNT 8.3 10^3/ul (4.8-10.8)
[2017-03-13] MEDS: ALBUTEROL 0.083% (NEB) 2.5 MG/3 ML AMP HHN ×4 (08:34→21:20)
[2017-03-13] MEDS: HYDROCORTISONE 5 MG TAB PO ×3 (08:41→20:34)
[2017-03-13] MEDS: FAMOTIDINE 20 MG TAB PO ×2 (08:42→20:34)
[2017-03-13] MEDS: CALCIUM CARBONATE 1.25 GM TAB PO ×3 (08:42→17:10)
[2017-03-13] MEDS: FINASTERIDE 5 MG TAB PO (08:42)
[2017-03-13] MEDS: ASPIRIN (EC) 81 MG TAB PO (08:42)
[2017-03-13] MEDS: COLLAGENASE 30 GM TUBE TOP (08:42)
[2017-03-13] MEDS: CALCITRIOL 0.25 MCG CAP PO ×2 (08:42→20:34)
[2017-03-13] MEDS: LIOTHYRONINE 5 MCG TAB PO ×2 (08:42→20:38)
[2017-03-13 08:45] LABS: ANION GAP 12 (8-16); BLOOD UREA NITROGEN 4 mg/dl (7-20); CALCIUM 8.2 mg/dl (8.4-10.2); CARBON DIOXIDE 27 mmol/L (21-31); CHLORIDE 107 mmol/L (97-110); CREATININE 1.37 mg/dl (0.61-1.24); GLUCOSE 68 mg/dl (70-220); MAGNESIUM 1.9 mg/dl (1.7-2.5); POTASSIUM 3.8 mmol/L (3.5-5.1); SODIUM 142 mmol/L (135-144)
[2017-03-13] MEDS: ENOXAPARIN 30 MG/0.3 ML SYG SC (08:53)
[2017-03-13] MEDS: BARIUM SULFATE 135 ML (E-Z HD) PO (09:22)
[2017-03-13] MEDS: VANCOMYCIN 1.5 GM in DEXTROSE 5% 500 ML IVPB (11:43)
[2017-03-13] MEDS: ACETAMINOPHEN 325 MG TAB PO (12:26)
[2017-03-13] MEDS: SOD CHLORIDE 0.9% 250 ML IV (13:59)
[2017-03-13] MEDS: TAMSULOSIN (SR) 0.4 MG CAP PO (20:34)
[2017-03-14] MEDS: LEVOTHYROXINE 175 MCG TAB PO (05:15)
[2017-03-14] MEDS: PIPER-TAZO 3.375 GM IV (PMX) 50 ML IVPB ×3 (05:15→21:14)
[2017-03-14] MEDS: CALCIUM CARBONATE 1.25 GM TAB PO ×3 (06:32→18:35)
[2017-03-14] MEDS: HYDROCORTISONE 5 MG TAB PO ×3 (08:39→21:14)
[2017-03-14] MEDS: LIOTHYRONINE 5 MCG TAB PO ×2 (08:40→20:35)
[2017-03-14] MEDS: ASPIRIN (EC) 81 MG TAB PO (08:41)
[2017-03-14] MEDS: FAMOTIDINE 20 MG TAB PO ×2 (08:41→20:35)
[2017-03-14] MEDS: ALBUTEROL 0.083% (NEB) 2.5 MG/3 ML AMP HHN (08:58)
[2017-03-14] MEDS: CALCITRIOL 0.25 MCG CAP PO ×2 (09:47→20:35)
[2017-03-14] MEDS: FINASTERIDE 5 MG TAB PO (09:48)
[2017-03-14] MEDS: COLLAGENASE 30 GM TUBE TOP (09:50)
[2017-03-14] MEDS ORDERED: IPRATROPIUM (NEB) 0.5 MG/2.5 ML AMP HHN (10:00)
[2017-03-14] MEDS ORDERED: LEVALBUTEROL (NEB) 0.63 MG/3 ML AMP HHN (10:00)
[2017-03-14 12:23] LABS: ADD MAN DIFF? NO
[2017-03-14 12:25] LABS: ABNORMAL IP MESSAGE 1; BASOPHIL # 0.1 10^3/ul (0.0-0.1); BASOPHILS % 0.9 % (0.0-2.0); EOSINOPHILS # 0.3 10^3/ul (0.0-0.5); EOSINOPHILS % 4.5 % (0.0-7.0); HEMATOCRIT 39.8 % (42.0-52.0); HEMOGLOBIN 13.5 g/dl (14.0-18.0); LYMPHOCYTES % 26.1 % (15.0-51.0); MEAN CORPUSCULAR HEMOGLOBIN 26.5 pg (29.0-33.0); MEAN CORPUSCULAR HGB CONC 33.9 g/dl (32.0-37.0); MEAN CORPUSCULAR VOLUME 78.2 fl (82.0-101.0); MEAN PLATELET VOLUME 9.2 fl (7.4-10.4); MONOCYTE # 0.6 10^3/ul (0.3-0.9); MONOCYTES % 8.5 % (0.0-11.0); NEUTROPHIL # 4.1 10^3/ul (1.6-7.5); NEUTROPHILS % 54.6 % (39.0-77.0); PLATELET COUNT 244 10^3/UL (140-415); POSITIVE DIFF @See below; RED BLOOD COUNT 5.09 10^6/ul (4.70-6.10); RED CELL DISTRIBUTION WIDTH 17.2 % (11.5-14.5)
[2017-03-14 12:25] LABS: WHITE BLOOD COUNT 7.5 10^3/ul (4.8-10.8)
[2017-03-14 12:51] LABS: ANION GAP 14 (8-16); BLOOD UREA NITROGEN 4 mg/dl (7-20); CALCIUM 8.2 mg/dl (8.4-10.2); CARBON DIOXIDE 26 mmol/L (21-31); CHLORIDE 104 mmol/L (97-110); CREATININE 1.43 mg/dl (0.61-1.24); GLUCOSE 96 mg/dl (70-220); MAGNESIUM 1.9 mg/dl (1.7-2.5); PHOSPHORUS 3.3 mg/dl (2.5-4.9); POTASSIUM 3.6 mmol/L (3.5-5.1); SODIUM 140 mmol/L (135-144)
[2017-03-14 13:10] LABS: ANISOCYTOSIS 1+ (0-0); BAND NEUTROPHILS #M 0.2 10^3/ul (0.0-0.6); BAND NEUTROPHILS % (M) 3 % (0-4); BASOPHILS % (M) 1 % (0-2); BURR CELLS 1+ (0-0); EOSINOPHILS % (M) 6 % (0-7); LYMPHOCYTES #M 2.4 10^3/ul (0.8-2.9); LYMPHOCYTES % (M) 33 % (15-51); METAMYELOCYTES #M 0.3 10^3/ul (0.0-0.0); METAMYELOCYTES %M 4 % (0-0); MICROCYTOSIS 1+ (0-0); MONOCYTE #M 0.6 10^3/ul (0.3-0.9); MONOCYTES % (M) 8 % (0-11); PLATELET ESTIMATE NORMAL; POIKILOCYTOSIS 2+ (0-0); POLYCHROMASIA 1+ (0-0); REACTIVE LYMPHOCYTES #M 0.8 10^3/ul (0.0-0.0); REACTIVE LYMPHOCYTES% (M) 11 % (0-0); SEG NEUT #M 2.6 10^3/ul (1.7-7.5); SEGMENTED NEUTROPHILS (M) % 34 % (39-77)
[2017-03-14] MEDS: ACETAMINOPHEN 325 MG TAB PO (13:37)
[2017-03-14] MEDS: HYDROCORTISONE 20 MG TAB PO (18:35)
[2017-03-14] MEDS: ERGOCALCIFEROL 50,000 UNIT CAP PO (18:35)
[2017-03-14] MEDS: TESTOSTERONE CYPIONATE 200 MG/ML INJ IM (18:36)
[2017-03-14] MEDS: TAMSULOSIN (SR) 0.4 MG CAP PO (20:35)
[2017-03-15] MEDS: PIPER-TAZO 3.375 GM IV (PMX) 50 ML IVPB ×3 (05:27→21:14)
[2017-03-15] MEDS: LEVOTHYROXINE 175 MCG TAB PO (05:27)
[2017-03-15 06:31] LABS: ADD MAN DIFF? NO
[2017-03-15 06:36] LABS: WHITE BLOOD COUNT 8.4 10^3/ul (4.8-10.8)
[2017-03-15 06:36] LABS: BASOPHIL # 0.1 10^3/ul (0.0-0.1); BASOPHILS % 1.1 % (0.0-2.0); EOSINOPHILS # 0.4 10^3/ul (0.0-0.5); EOSINOPHILS % 4.3 % (0.0-7.0); HEMOGLOBIN 13.7 g/dl (14.0-18.0); LYMPHOCYTES # 2.2 10^3/ul (0.8-2.9); LYMPHOCYTES % 26.3 % (15.0-51.0); MEAN CORPUSCULAR HEMOGLOBIN 26.4 pg (29.0-33.0); MEAN CORPUSCULAR HGB CONC 33.4 g/dl (32.0-37.0); MEAN PLATELET VOLUME 8.7 fl (7.4-10.4); MONOCYTE # 0.6 10^3/ul (0.3-0.9); MONOCYTES % 7.4 % (0.0-11.0); NEUTROPHIL # 4.9 10^3/ul (1.6-7.5); NEUTROPHILS % 57.9 % (39.0-77.0); PLATELET COUNT 249 10^3/UL (140-415); RED BLOOD COUNT 5.19 10^6/ul (4.70-6.10); RED CELL DISTRIBUTION WIDTH 17.2 % (11.5-14.5)
[2017-03-15 07:06] LABS: ANION GAP 13 (8-16); BLOOD UREA NITROGEN 6 mg/dl (7-20); CALCIUM 8.6 mg/dl (8.4-10.2); CARBON DIOXIDE 28 mmol/L (21-31); CHLORIDE 107 mmol/L (97-110); CREATININE 1.38 mg/dl (0.61-1.24); GLUCOSE 72 mg/dl (70-220); MAGNESIUM 1.9 mg/dl (1.7-2.5); PHOSPHORUS 4.3 mg/dl (2.5-4.9); POTASSIUM 3.9 mmol/L (3.5-5.1); SODIUM 144 mmol/L (135-144)
[2017-03-15] MEDS: FAMOTIDINE 20 MG TAB PO ×2 (09:28→21:05)
[2017-03-15] MEDS: CALCITRIOL 0.25 MCG CAP PO ×2 (09:28→21:04)
[2017-03-15] MEDS: HYDROCORTISONE 5 MG TAB PO ×3 (09:28→21:05)
[2017-03-15] MEDS: LIOTHYRONINE 5 MCG TAB PO ×2 (09:28→21:14)
[2017-03-15] MEDS: CALCIUM CARBONATE 1.25 GM TAB PO ×3 (09:29→17:13)
[2017-03-15] MEDS: ASPIRIN (EC) 81 MG TAB PO (09:29)
[2017-03-15] MEDS: FINASTERIDE 5 MG TAB PO (09:29)
[2017-03-15] MEDS: COLLAGENASE 30 GM TUBE TOP (10:36)
[2017-03-15] MEDS: FUROSEMIDE 20 MG INJ IV (17:13)
[2017-03-15] MEDS: TAMSULOSIN (SR) 0.4 MG CAP PO (21:05)
[2017-03-15] MEDS: DILTIAZEM (CD) 180 MG CAP PO (21:06)
[2017-03-16] MEDS: LEVOTHYROXINE 175 MCG TAB PO (05:12)
[2017-03-16] MEDS: PIPER-TAZO 3.375 GM IV (PMX) 50 ML IVPB (05:12)
[2017-03-16 06:46] LABS: ADD MAN DIFF? NO
[2017-03-16 07:06] LABS: BASOPHIL # 0.1 10^3/ul (0.0-0.1); BASOPHILS % 0.9 % (0.0-2.0); EOSINOPHILS # 0.4 10^3/ul (0.0-0.5); EOSINOPHILS % 4.7 % (0.0-7.0); HEMOGLOBIN 13.6 g/dl (14.0-18.0); MEAN CORPUSCULAR HEMOGLOBIN 25.9 pg (29.0-33.0); MEAN CORPUSCULAR HGB CONC 32.4 g/dl (32.0-37.0); MEAN CORPUSCULAR VOLUME 79.8 fl (82.0-101.0); MEAN PLATELET VOLUME 8.9 fl (7.4-10.4); MONOCYTE # 0.6 10^3/ul (0.3-0.9); MONOCYTES % 8.3 % (0.0-11.0); NEUTROPHIL # 4.3 10^3/ul (1.6-7.5); NEUTROPHILS % 56.6 % (39.0-77.0); PLATELET COUNT 257 10^3/UL (140-415); RED BLOOD COUNT 5.26 10^6/ul (4.70-6.10); RED CELL DISTRIBUTION WIDTH 17.1 % (11.5-14.5)
[2017-03-16 07:06] LABS: WHITE BLOOD COUNT 7.5 10^3/ul (4.8-10.8)
[2017-03-16 07:14] LABS: PHENYTOIN (DILANTIN) 17.7 ug/ml (10.0-20.0)
[2017-03-16 07:24] LABS: FREE T4 (FREE THYROXINE) 0.94 ng/dl (0.85-1.93)
[2017-03-16] MEDS: FINASTERIDE 5 MG TAB PO (08:19)
[2017-03-16] MEDS: CALCIUM CARBONATE 1.25 GM TAB PO ×3 (08:19→16:37)
[2017-03-16] MEDS: ASPIRIN (EC) 81 MG TAB PO (08:19)
[2017-03-16] MEDS: LIOTHYRONINE 5 MCG TAB PO ×2 (08:19→23:15)
[2017-03-16] MEDS: CALCITRIOL 0.25 MCG CAP PO ×2 (08:19→23:15)
[2017-03-16] MEDS: FAMOTIDINE 20 MG TAB PO ×2 (08:20→23:14)
[2017-03-16] MEDS: COLLAGENASE 30 GM TUBE TOP (08:20)
[2017-03-16 08:34] LABS: FREE T3 2.74 pg/ml (2.77-5.27)
[2017-03-16] MEDS: HYDROCORTISONE 5 MG TAB PO ×3 (08:55→23:15)
[2017-03-16] MEDS: ACETAMINOPHEN 325 MG TAB PO (14:53)
[2017-03-16] MEDS: DILTIAZEM (CD) 180 MG CAP PO (23:14)
[2017-03-16] MEDS: TAMSULOSIN (SR) 0.4 MG CAP PO (23:15)
[2017-03-17] MEDS: LEVOTHYROXINE 175 MCG TAB PO (06:24)
[2017-03-17] MEDS: ACETAMINOPHEN 325 MG TAB PO ×3 (06:24→10:09)
[2017-03-17 07:50] LABS: ADD MAN DIFF? NO
[2017-03-17 08:02] LABS: WHITE BLOOD COUNT 7.4 10^3/ul (4.8-10.8)
[2017-03-17 08:02] LABS: BASOPHILS % 0.5 % (0.0-2.0); EOSINOPHILS # 0.2 10^3/ul (0.0-0.5); EOSINOPHILS % 2.8 % (0.0-7.0); HEMATOCRIT 42.3 % (42.0-52.0); HEMOGLOBIN 13.7 g/dl (14.0-18.0); LYMPHOCYTES # 2.2 10^3/ul (0.8-2.9); MEAN CORPUSCULAR HEMOGLOBIN 25.8 pg (29.0-33.0); MEAN CORPUSCULAR HGB CONC 32.4 g/dl (32.0-37.0); MEAN CORPUSCULAR VOLUME 79.8 fl (82.0-101.0); MEAN PLATELET VOLUME 9.2 fl (7.4-10.4); MONOCYTE # 0.6 10^3/ul (0.3-0.9); MONOCYTES % 7.7 % (0.0-11.0); NEUTROPHIL # 4.4 10^3/ul (1.6-7.5); NEUTROPHILS % 58.8 % (39.0-77.0); PLATELET COUNT 280 10^3/UL (140-415); RED CELL DISTRIBUTION WIDTH 17.1 % (11.5-14.5)
[2017-03-17] MEDS: FINASTERIDE 5 MG TAB PO (08:56)
[2017-03-17] MEDS: CALCITRIOL 0.25 MCG CAP PO ×2 (08:57→22:28)
[2017-03-17] MEDS: ASPIRIN (EC) 81 MG TAB PO (08:57)
[2017-03-17] MEDS: HYDROCORTISONE 5 MG TAB PO ×3 (08:58→22:27)
[2017-03-17] MEDS: FAMOTIDINE 20 MG TAB PO ×2 (08:59→22:29)
[2017-03-17] MEDS: LIOTHYRONINE 5 MCG TAB PO ×2 (08:59→22:28)
[2017-03-17] MEDS: CALCIUM CARBONATE 1.25 GM TAB PO ×3 (09:00→17:28)
[2017-03-17] MEDS: COLLAGENASE 30 GM TUBE TOP (09:01)
[2017-03-17 16:05] LABS: ANION GAP 13 (8-16); BLOOD UREA NITROGEN 9 mg/dl (7-20); CALCIUM 8.6 mg/dl (8.4-10.2); CARBON DIOXIDE 29 mmol/L (21-31); CHLORIDE 99 mmol/L (97-110); CREATININE 1.26 mg/dl (0.61-1.24); GLUCOSE 99 mg/dl (70-220); POTASSIUM 3.6 mmol/L (3.5-5.1); SODIUM 137 mmol/L (135-144)
[2017-03-17] MEDS: DILTIAZEM (CD) 180 MG CAP PO ×2 (21:00→22:28)
[2017-03-17] MEDS: TAMSULOSIN (SR) 0.4 MG CAP PO (22:29)
[2017-03-18] MEDS: LEVOTHYROXINE 175 MCG TAB PO (05:42)
[2017-03-18 08:42] LABS: ADD MAN DIFF? NO
[2017-03-18 08:51] LABS: WHITE BLOOD COUNT 7.6 10^3/ul (4.8-10.8)
[2017-03-18 08:51] LABS: BASOPHIL # 0.1 10^3/ul (0.0-0.1); BASOPHILS % 0.7 % (0.0-2.0); EOSINOPHILS # 0.3 10^3/ul (0.0-0.5); EOSINOPHILS % 3.4 % (0.0-7.0); HEMATOCRIT 40.6 % (42.0-52.0); HEMOGLOBIN 13.4 g/dl (14.0-18.0); LYMPHOCYTES # 2.1 10^3/ul (0.8-2.9); MEAN CORPUSCULAR VOLUME 78.7 fl (82.0-101.0); MEAN PLATELET VOLUME 9.6 fl (7.4-10.4); MONOCYTE # 0.7 10^3/ul (0.3-0.9); MONOCYTES % 9.7 % (0.0-11.0); NEUTROPHIL # 4.3 10^3/ul (1.6-7.5); NEUTROPHILS % 57.1 % (39.0-77.0); PLATELET COUNT 256 10^3/UL (140-415); RED BLOOD COUNT 5.16 10^6/ul (4.70-6.10); RED CELL DISTRIBUTION WIDTH 17.3 % (11.5-14.5)
[2017-03-18] MEDS: CALCITRIOL 0.25 MCG CAP PO ×2 (09:17→21:34)
[2017-03-18] MEDS: FAMOTIDINE 20 MG TAB PO ×2 (09:17→21:34)
[2017-03-18] MEDS: HYDROCORTISONE 5 MG TAB PO ×3 (09:17→21:33)
[2017-03-18] MEDS: CALCIUM CARBONATE 1.25 GM TAB PO ×3 (09:17→17:07)
[2017-03-18] MEDS: LIOTHYRONINE 5 MCG TAB PO ×2 (09:17→21:33)
[2017-03-18] MEDS: COLLAGENASE 30 GM TUBE TOP (09:17)
[2017-03-18] MEDS: FINASTERIDE 5 MG TAB PO (09:17)
[2017-03-18] MEDS: ASPIRIN (EC) 81 MG TAB PO (09:17)
[2017-03-18 09:20] LABS: ANION GAP 10 (8-16); BLOOD UREA NITROGEN 10 mg/dl (7-20); CALCIUM 8.8 mg/dl (8.4-10.2); CARBON DIOXIDE 29 mmol/L (21-31); CHLORIDE 102 mmol/L (97-110); CREATININE 1.17 mg/dl (0.61-1.24); GLUCOSE 70 mg/dl (70-220); MAGNESIUM 1.8 mg/dl (1.7-2.5); PHOSPHORUS 4.1 mg/dl (2.5-4.9); POTASSIUM 4.1 mmol/L (3.5-5.1); SODIUM 137 mmol/L (135-144)
[2017-03-18] MEDS: ACETAMINOPHEN 325 MG TAB PO (19:39)
[2017-03-18] MEDS: DILTIAZEM (CD) 180 MG CAP PO ×2 (21:00→21:32)
[2017-03-18] MEDS: PHENYTOIN 100 MG CAP PO (21:33)
[2017-03-18] MEDS: TAMSULOSIN (SR) 0.4 MG CAP PO (21:33)
[2017-03-19] MEDS: LEVOTHYROXINE 175 MCG TAB PO (06:05)
[2017-03-19] MEDS: ACETAMINOPHEN 325 MG TAB PO (08:49)
[2017-03-19] MEDS: CALCIUM CARBONATE 1.25 GM TAB PO ×2 (08:51→12:58)
[2017-03-19] MEDS: ASPIRIN (EC) 81 MG TAB PO (08:53)
[2017-03-19] MEDS: FAMOTIDINE 20 MG TAB PO (08:53)
[2017-03-19] MEDS: HYDROCORTISONE 5 MG TAB PO (08:54)
[2017-03-19] MEDS: CALCITRIOL 0.25 MCG CAP PO (08:55)
[2017-03-19] MEDS: COLLAGENASE 30 GM TUBE TOP (08:58)
[2017-03-19] MEDS: FINASTERIDE 5 MG TAB PO (12:58)
[2017-03-19] MEDS: LIOTHYRONINE 5 MCG TAB PO (12:58)
[2017-03-19] MEDS: ENOXAPARIN 30 MG/0.3 ML SYG SC (13:18)
== END 2017-03-19 17:51 | disposition home health service (06) | DRG 291 ==
LOC: ICU 03-07 06:00 → E/R 05:29 → MS4 13:00 → TEL 03-07 21:04 → MS3 08:31 → MS4 22:45
PROC: 02HV33Z Insertion of Infusion Device into Superior Vena Cava, Percutaneous Approach (ICD-10-PCS; principal; 2017-03-07)
DX: I50.31 Acute diastolic (congestive) heart failure (principal); J96.01 Acute respiratory failure with hypoxia; G92 Toxic encephalopathy; A41.9 Sepsis, unspecified organism; J18.9 Pneumonia, unspecified organism; N17.9 Acute kidney failure, unspecified; L89.323 Pressure ulcer of left buttock, stage 3; N39.0 Urinary tract infection, site not specified; J44.1 Chronic obstructive pulmonary disease with (acute) exacerbation; E27.49 Other adrenocortical insufficiency; E87.1 Hypo-osmolality and hyponatremia; E23.0 Hypopituitarism; I13.0 Hypertensive heart and chronic kidney disease with heart failure and stage 1 through stage 4 chronic kidney disease, or unspecified chronic kidney disease; I95.9 Hypotension, unspecified; E89.3 Postprocedural hypopituitarism; E83.51 Hypocalcemia; E83.9 Disorder of mineral metabolism, unspecified; G40.909 Epilepsy, unspecified, not intractable, without status epilepticus; R53.81 Other malaise; E03.8 Other specified hypothyroidism; E78.5 Hyperlipidemia, unspecified; H91.93 Unspecified hearing loss, bilateral; N18.2 Chronic kidney disease, stage 2 (mild); T42.0X5A Adverse effect of hydantoin derivatives, initial encounter; B96.20 Unspecified Escherichia coli [E. coli] as the cause of diseases classified elsewhere; Y95 Nosocomial condition; R79.89 Other specified abnormal findings of blood chemistry; Z85.46 Personal history of malignant neoplasm of prostate; Z86.73 Personal history of transient ischemic attack (TIA), and cerebral infarction without residual deficits; Z86.39 Personal history of other endocrine, nutritional and metabolic disease
CPT/HCPCS: 36569; 36600; 70450; 71010; 71045; 74230; 76775; 76937; 78582; 80048; 80053; 80061; 80069; 80185; 80202; 81001; 81003; 82043; 82306; 82330; 82550; 82553; 82803; 82962; 83036; 83605; 83690; 83735; 83880; 83935; 84100; 84155; 84300; 84436; 84439; 84443; 84479; 84481; 84484; 85025; 86803; 87040; 87086; 87340; 92526; 92610; 92611; 93005; 93306; 94640; 94664; 95819; 96374; 97003; 97110; 97116; 97163; 97530; 99285-25; J1940

== ENCOUNTER 2018-06-21 11:59 | Emergency (ER) | payer MEDICARE, OTHER ==
[2018-06-21] MEDS: SOD CHLORIDE 0.9% 500 ML IV (12:05)
[2018-06-21] MEDS: DEXTROSE 50% 50 ML SYRINGE IV (12:05)
[2018-06-21] MEDS: LORAZEPAM 2 MG INJ IV (12:05)
[2018-06-21 12:52] LABS: ADD MAN DIFF? NO
[2018-06-21 13:07] LABS: BASOPHILS % 0.4 % (0.0-2.0); EOSINOPHILS # 0.1 10^3/ul (0.0-0.5); EOSINOPHILS % 0.8 % (0.0-7.0); HEMATOCRIT 46.6 % (42.0-52.0); HEMOGLOBIN 15.4 g/dl (14.0-18.0); LYMPHOCYTES # 2.1 10^3/ul (0.8-2.9); MEAN CORPUSCULAR HEMOGLOBIN 27.4 pg (29.0-33.0); MEAN CORPUSCULAR VOLUME 82.8 fl (82.0-101.0); MEAN PLATELET VOLUME 10.3 fl (7.4-10.4); MONOCYTE # 0.8 10^3/ul (0.3-0.9); MONOCYTES % 7.8 % (0.0-11.0); NEUTROPHIL # 7.2 10^3/ul (1.6-7.5); NEUTROPHILS % 70.3 % (39.0-77.0); PLATELET COUNT 131 10^3/UL (140-415); POSITIVE DIFF @See below; RED BLOOD COUNT 5.63 10^6/ul (4.70-6.10); RED CELL DISTRIBUTION WIDTH 13.4 % (11.5-14.5)
[2018-06-21 13:07] LABS: WHITE BLOOD COUNT 10.2 10^3/ul (4.8-10.8)
[2018-06-21 13:26] LABS: ANION GAP 10 (5-13); BLOOD UREA NITROGEN 23 mg/dl (7-20); CALCIUM 8.9 mg/dl (8.4-10.2); CARBON DIOXIDE 25 mmol/L (21-31); CHLORIDE 101 mmol/L (97-110); CREATININE 1.33 mg/dl (0.61-1.24); GLUCOSE 83 mg/dl (70-220); PHENYTOIN (DILANTIN) 14.6 ug/ml (10.0-20.0); POTASSIUM 5.1 mmol/L (3.5-5.1); SODIUM 136 mmol/L (135-144)
[2018-06-21 13:44] LABS: TROPONIN-I 0.023 ng/ml (0.000-0.120)
[2018-06-21 14:14] LABS: ANISOCYTOSIS 1+ (0-0); BAND NEUTROPHILS #M 0.2 10^3/ul (0.0-0.6); BAND NEUTROPHILS % (M) 2 % (0-4); BASOPHIL #M 0.2 10^3/ul (0.0-0.0); BASOPHILS % (M) 2 % (0-2); EOSINOPHILS % (M) 1 % (0-7); LYMPHOCYTES #M 1.4 10^3/ul (0.8-2.9); LYMPHOCYTES % (M) 14 % (15-51); MICROCYTOSIS 1+ (0-0); MONOCYTE #M 0.7 10^3/ul (0.3-0.9); MONOCYTES % (M) 7 % (0-11); PLATELET ESTIMATE NORMAL; POIKILOCYTOSIS 1+ (0-0); POLYCHROMASIA 3+ (0-0); REACTIVE LYMPHOCYTES #M 1.4 10^3/ul (0.0-0.0); REACTIVE LYMPHOCYTES% (M) 14 % (0-0); SEG NEUT #M 6.1 10^3/ul (1.6-7.5); SEGMENTED NEUTROPHILS (M) % 60 % (39-77)
== END 2018-06-21 14:29 | disposition home or self-care (01) ==
LOC: E/R 11:59
DX: G40.909 Epilepsy, unspecified, not intractable, without status epilepticus (principal); N28.9 Disorder of kidney and ureter, unspecified; R40.2142 Coma scale, eyes open, spontaneous, at arrival to emergency department; R40.2252 Coma scale, best verbal response, oriented, at arrival to emergency department; R40.2362 Coma scale, best motor response, obeys commands, at arrival to emergency department; I50.9 Heart failure, unspecified; Z85.46 Personal history of malignant neoplasm of prostate
CPT/HCPCS: 36415; 80048; 80185; 82962; 84484; 85025; 93005; 99284-25